=== PATIENT | male | born 1970 | race Caucasian/White ===

== ENCOUNTER 2020-12-27 19:34 | Emergency (ER) | payer OTHER, SELFPAY ==
[2020-12-27 19:44] VITALS: BP 155/74; PULSE 85; RESP 24; TEMP 38.1; O2SAT 92
--- NOTE | 2020-12-27 20:15 | DI.RAD.S_ITS ---
PROCEDURE: XR CHEST 1V INDICATIONS: covid infection TECHNIQUE: One view of the chest was acquired. COMPARISON: None. FINDINGS: Surgical changes and devices: None. Lungs and pleura: Ill-defined airspace opacities are seen scattered in bilateral hilar region and bilateral mid to lower lung perales. No pleural effusions or pneumothorax. Mediastinum: Mediastinal contours appear normal. Heart size is normal. Bones and chest wall: No suspicious bony lesions. Overlying soft tissues appear unremarkable. IMPRESSION: Finding is consistent with developing bilateral multilobar infiltrates from COVID-19 infection. No pleural effusion or pneumothorax. Dictated by: Isaías Augustine M.D. on 12/27/2020 at 20:49 Approved by: Isaías Augustine M.D. on 12/27/2020 at 20:50
[2020-12-27] MEDS: ACETAMINOPHEN 325 MG TABLET 975 MG PO (20:21)
--- NOTE | 2020-12-27 21:23 | ED_ITS ---
HPI - SOB/Dyspnea General Chief Complaint: Shortness of Breath/Dyspnea Stated Complaint: states is covid +, not feeling well Time Seen by Provider: 12/27/20 20:15 Source: patient Mode of arrival: Ambulatory History of Present Illness HPI Narrative: This is a 50-year-old male who comes to the emergency department with approximately 7-10 days of COVID symptoms. Patient states he has been feeling unwell but particularly in the last several days. He feels short of breath, he has chest pain, he has had fevers. He has had nausea and vomiting. He has had some diarrhea. He has not had any syncope. He has not any new swelling in his extremities. He denies any medical issues. He has had a prior hernia repair in the past. He denies allergies to medications. He denies any remote or recent tobacco abuse, no regular alcohol or illicit. He is accompanied by his today. Related Data Previous Rx's Medication Instructions Recorded codeine 10 mg-guaifenesin 200 mg/5 5 ml PO Q6H PRN #100 ml 12/27/20 mL oral liquid ondansetron HCl 4 mg tablet 4 mg PO Q6H PRN #10 tab 12/27/20 (Zofran) Review of Systems Review of Systems ROS Unobtainable: All systems reviewed & are unremarkable except as noted in HPI and below Exam Narrative Exam Narrative: GENERAL: Alert and oriented x three, obese male in mild distress but does appear to feel unwell. HEENT: Head normocephalic, atraumatic, EOMI, pupils reactive, face symmetric, moist mucous membranes NECK: Supple, full range of motion CARDIOVASCULAR: Regular rate and rhythm without murmurs, rubs or gallops. RESPIRATORY: Breath sounds equal bilaterally, no wheezes rales or rhonchi. Patient is able to speak in full sentences. No tachypnea. No accessory muscle use. ABDOMEN: Soft, nontender. Normoactive bowel sounds all 4 quadrants. No gua rding or rebound, rigidity, no mass : No CVA tenderness EXTREMITIES: Normal range of motion, no clubbing or edema. Neurovascularly intact NEUROLOGICAL: Cranial nerves II through XII grossly intact. Moving all extremities SKIN: Warm, dry, no petechiae, no rashes or lesions. Initial Vital Signs Initial Vital Signs: Vital Signs Temperature 100.5 F H 12/27/20 19:44 Pulse Rate 85 09/28/21 19:44 Respiratory Rate 24 12/27/20 19:44 Blood Pressure 155/74 H 12/27/20 19:44 Pulse Oximetry 92 12/27/20 19:44 Course Orders Ordered: ED Orders 12/27/20 20:15 XR chest 1V Stat Discontinued Medications Acetaminophen (Acetaminophen 325 Mg Tablet) 975 mg PO NOW ONE Stop: 12/27/20 20:16 Last Admin: 12/27/20 20:21 Dose: 975 mg Documented by: BRAIN Ondansetron HCl (Ondansetron 4 Mg Odt Prepack) 1 bottle MISC SEEINSTR ONE Stop: 12/27/20 21:50 Last Admin: 12/27/20 21:54 Dose: 1 bottle Documented by: BRAIN Vital Signs Vital signs: Vital Signs - 8 hr 12/27/20 19:44 12/27/20 22:03 Temperature 100.5 F H Pulse Rate 85 84 Respiratory Rate 24 Blood Pressure 155/74 H Pulse Oximetry 92 94 MDM - SOB/Dyspnea Imaging Data Chest x-ray: Radiologist's Impression: [place] [address] XRay Report Signed Patient: Ayo Antonio MR#: [id number] : 1970 Acct:[id number] Age/Sex: 50 / M Date of Service: 12/27/20 Loc: ED Accession Number: [id number] ?? Procedure: XR chest 1V Ordering Provider: Soniya Nelson D.O. PROCEDURE:? XR CHEST 1V ? INDICATIONS:? covid infection ? TECHNIQUE:? One view of the chest was acquired.? ? COMPARISON:? None. ? FINDINGS:? ? Surgical changes and devices:? None.? ? Lungs and pleura:? Ill-defined airspace opacities are seen scattered in bilateral hilar region and bilateral mid to lower lung perales.? No pleural effusions or pneumothorax.? ? Mediastinum:? Mediastinal contours appear normal.? Heart size is normal.? ? Bones and chest wall:? No suspicious bony lesions.? Overlying soft tissues appear unremarkable.? ? IMPRESSION:? Finding is consistent with developing bilateral multilobar infiltrates from COVID-19 infection.? No pleural effusion or pneumothorax. ? ? Dictated by: Isaías Augustine M.D. on 12/27/2020 at 20:49 ? ? Approved by: Isaías Augustine M.D. on 12/27/2020 at 20:50? [facility] Narrative Medical decision making narrative: This is a 50-year-old gentleman who was found to be COVID positive a little over a week ago approximately 10 days symptoms. He does have obesity but no other known risk factors. He has had chest pain shortness of breath and is borderline with 92% on room air. He is febrile to 100.5 F but no other major vital sign changes. Chest x-ray is positive for multi lobar pneumonia. Patient was ambulated in the department for over 3 minutes and his O2 sat was never lower than 94% during that episode he has not dropped below 92%. I do think he may benefit from monoclonal antibodies although he is on the outer edge of typical treatment range but order was written and faxed to [facility]. Patient does have a pulse oximeter at home. He had obtained a prescription for azithromycin and prednisone and was asked to stop these as steroids in not hypoxic patient's have been found to be not helpful. Patient expressed understanding. Strict return precautions were given. Has had some nausea and vomiting and was given a prescription for Zofran as well as anti cough medicine. Discharge Plan Departure Patient Disposition: Home Clinical Impression: Pneumonia due to COVID-19 virus Instructions: DI for COVID-19 (Suspected or Confirmed ) Activity Restrictions/Additional Instructions: *You have been diagnosed with coronavirus pneumonia with changes seen on your chest xray. Use your pulse oximeter for use at home to monitor. Please return to the ER if your pulse oximeter shows an O2 saturation less than 92%. An order was faxed to [facility] in [place] to set up a monoclonal antibody infusion. This is a 1 time infusion that has been helpful for some patients. It is emergency authorized by the FDA. This is not a guarantee that you will be set up as is a national shortage, they should be contacting you to set up infusion in the next 24-48 hours. Continue with up to a 1000 mg every 8 hours and or ibuprofen up to 800 mg every 8 hours. You may take Zofran 1 tablet every 6 hours as needed for nausea. You may also take cough syrup 5 mL every 6 hours as needed. Prescription sent to [facility] in [place]. *What to do: * per recommendations from the CDC and the [facility] Department of Health * stay home except to get medical care. Restrict activities outside your home, except for getting medical care. Do not go to work, school, or public areas. Avoid using public transportation, ride sharing, or taxis. * separate yourself from other people in your home. * call ahead before visiting your doctor * Wear a face mask * Cover your coughs and sneezes * Clean your hands often * Avoid sharing household items * Clean all high-touch services every day * Monitor your symptoms and seek prompt medical attention if your illness is worsening, particularly with difficulty in breathing. Discussed continuing home isolation * for individuals with symptoms who are confirmed or suspected cases of COVID-19 and are directed to care for themselves at home, discontinue home isolation under the following conditions: 1. At least 72 hours have passed since recovery, defined as resolution of fever without the use of fever reducing medications, and improvement in respiratory symptoms (cough, shortness of breath) AND, 2. At least 7 days have passed since symptoms 1st appeared Individuals with laboratory confirmed COVID-19 who have not had any symptoms may discontinue home isolation when at least 7 days have passed since the date of their 1st COVID-19 diagnostic test and have had no subsequent illness Prescriptions: New ondansetron HCl [Zofran] 4 mg tablet 4 mg PO Q6H PRN (Reason: nausea and vomiting) Qty: 10 RF: 0 codeine-guaifenesin 10-200 mg/5 mL liquid 5 ml PO Q6H PRN (Reason: cough) Qty: 100 RF: 0
[2020-12-27] MEDS: ONDANSETRON 4 MG ODT PREPACK 1 BOTTLE MISC (21:54)
[2020-12-27 22:03] VITALS: PULSE 84; O2SAT 94
== END 2020-12-27 22:05 | disposition home or self-care (01) ==
PROVIDERS: Emergency Provider Emergency Medicine
DX: U07.1 COVID-19 (principal); J12.82 Pneumonia due to coronavirus disease 2019; R07.9 Chest pain, unspecified
CPT/HCPCS: 71045; 99283

== ENCOUNTER 2020-12-30 08:18 | Inpatient (IN) | payer OTHER, SELFPAY ==
[2020-12-30] VITALS (17 sets, daily range): BP systolic 121–170; BP diastolic 72–97; PULSE 70–87; RESP 17–29; TEMP 36.2–36.7; O2SAT 80–99; BMI 45.4
--- NOTE | 2020-12-30 08:37 | ED.SOB ---
HPI - SOB/Dyspnea General Chief Complaint: Fever Stated Complaint: covid+, O2 level 84 Time Seen by Provider: 12/30/20 08:28 History of Present Illness HPI Narrative: A 50-year-old male with known COVID presenting today with low oxygen levels. Past medical history includes obesity but no other medications. He started having symptoms weeks. He was seen and evaluated here on 12/27/2020, he did not require oxygen at that time he was sent home with precautions. He has been checking his oxygen level he said yesterday he was still above 90% however this morning he was 83%. He continues to have night sweats cough and congestion. Generally feels weak and tired. He can still taste. He has not been eating or drinking very much complains of dry mouth. It was attempted that he get outpatient monoclonal antibody infusion however since symptoms have been going on for longer than 10 days did not qualify. Related Data Home Medications Medication Instructions Recorded Confirmed azithromycin 250 mg tablet 250 mg PO DAILY 12/30/20 12/30/20 Previous Rx's Medication Instructions Recorded codeine 10 mg-guaifenesin 200 mg/5 5 ml PO Q6H PRN #100 ml 12/27/20 mL oral liquid ondansetron HCl 4 mg tablet 4 mg PO Q6H PRN #10 tab 12/27/20 (Zofran) Allergies Allergy/AdvReac Type Severity Reaction Status Date / Time No Known Drug Allergies Allergy Verified 12/30/20 08:49 Review of Systems Review of Systems ROS Unobtainable: All systems reviewed & are unremarkable except as noted in HPI and below Constitutional Constitutional: Reports body ache(s), Reports chills, Reports fatigue and Reports fever(s) ENT Ears, Nose, Mouth, and Throat: Denies vertigo and Denies dizziness Cardiovascular Cardiovascular: Denies chest pain, Denies lightheadedness and Reports dyspnea on exertion Respiratory Respiratory: Reports as per HPI, Reports chest congestion and Reports dyspnea on exertion Gastrointestinal Gastrointestinal: Denies abdominal pain and Denies nausea Integumentary/Breasts Skin/Breast: Denies rash and Denies skin pain Neurologic Neurologic: Denies confusion, Denies vertigo and Denies dizziness Psychiatric Psychiatric: Denies confusion Endocrine Endocrine: Reports fatigue Patient History Family History (Updated 12/30/20 @ 13:48 by Nicolette Martin MD) Mother Brain malignancy Other Cancer Social History household members: spouse and children Smoking Status: Never smoker Exam Initial Vital Signs Initial Vital Signs: Vital Signs Temperature 98.1 F 12/30/20 08:25 Pulse Rate 74 12/30/20 08:25 Respiratory Rate 24 12/30/20 08:25 Blood Pressure 156/78 H 12/30/20 08:25 Pulse Oximetry 80 L 12/30/20 08:25 GENERAL: Alert 50-year-old male appears to not feel well HEENT: Head atraumatic,EOMI, pupils reactive, face symmetric, moist mucous membranes CARDIOVASCULAR: Regular rate and rhythm without murmurs, rubs or gallops. RESPIRATORY: Coarse breath sounds at bases ABDOMEN: Soft, nontender. Normoactive bowel sounds all 4 quadrants. No guarding or rebound. EXTREMITIES: Normal range of motion, no clubbing or edema. Neurovascularly intact NEUROLOGICAL: Alert and oriented x4.Normal gait and speech. SKIN: Warm, dry, no laceration, no petechiae, no rashes or lesions. Course Orders Ordered: Acetaminophen (Acetaminophen 325 Mg Tablet) 650 mg PO Q6HR PRN PRN Reason: Fever/Mild Pain (1-3) Bisacodyl (Bisacodyl 10 Mg Supp) 10 mg IA DAILY PRN PRN Reason: Constipation Dexamethasone (Dexamethasone 10 Mg/Ml Vial) 6 mg IV DAILY [facility] Docusate Sodium (Docusate 100 Mg Capsule) 100 mg PO BID [facility] Enoxaparin Sodium (Enoxaparin 40 Mg/0.4 Ml Syringe) 40 mg SUBCUT BID [facility] Guaifenesin (Guaifenesin Er 600 Mg Tab) 600 mg PO Q12HR PRN PRN Reason: Cough Guaifenesin/Codeine Phosphate (Codeine/Guaifenesin Liquid 5ml Udc) 10 ml PO Q6H PRN PRN Reason: Cough Remdesivir 100 mg/ Sodium (Chloride) 250 mls @ 250 mls/hr IV DAILY [facility] Stop: 01/03/21 09:59 Ibuprofen (Ibuprofen 600 Mg Tablet) 600 mg PO Q6HR PRN PRN Reason: Fever/Mild Pain (1-3) Insulin Glargine (Insulin Glargine 100 Unit/Ml 3ml Pen) 20 unit SUBCUT BEDTIME [facility] Insulin Human Lispro (Insulin Lispro 100 Unit/Ml 3ml Vial) 0 unit SUBCUT [facility]; Protocol Last Admin: 12/30/20 17:23 Dose: 12 unit Documented by: JEFFREY Aguiarigned by: ANATOLY Magnesium Hydroxide (Magnesium Hydroxide 30 Ml Udc) 30 ml PO DAILY PRN PRN Reason: Constipation Naloxone HCl (Naloxone 0.4 Mg/Ml Vial) 0.2 mg IV Q2MIN PRN PRN Reason: Opiate Reversal Ondansetron HCl (Ondansetron 4 Mg/2 Ml Inj) 4 mg IV Q8HR PRN PRN Reason: Nausea And Vomiting Sennosides (Sennosides 8.6 Mg Tablet) 17.2 mg PO BEDTIME EMMY Discontinued Medications Dexamethasone (Dexamethasone 10 Mg/Ml Vial) 6 mg IV NOW ONE Stop: 12/30/20 08:42 Last Admin: 12/30/20 09:07 Dose: 6 mg Documented by: KIRT Remdesivir 200 mg/ Sodium (Chloride) 250 mls @ 250 mls/hr IV NOW ONE Stop: 12/30/20 08:42 Last Infusion: 12/30/20 10:19 Dose: 0 mls/hr Documented by: Admin: 12/30/20 09:07 Dose: 250 mls/hr Documented by: KIRT Insulin Glargine (Insulin Glargine 100 Unit/Ml 3ml Pen) 20 unit SUBCUT NOW ONE Stop: 12/30/20 18:06 Vital Signs Vital signs: Vital Signs - 8 hr 12/30/20 08:25 12/30/20 08:30 12/30/20 08:35 Temperature 98.1 F Pulse Rate 74 74 Respiratory Rate 24 24 Blood Pressure 156/78 H Pulse Oximetry 80 L 95 97 12/30/20 08:45 12/30/20 08:56 12/30/20 09:00 Temperature Pulse Rate 73 72 74 Respiratory Rate 20 21 23 Blood Pressure 121/78 143/84 H Pulse Oximetry 97 97 96 12/30/20 09:15 Temperature Pulse Rate 71 Respiratory Rate 27 H Blood Pressure 170/97 H Pulse Oximetry 97 MDM - SOB/Dyspnea Lab Data Result diagrams: 12/30/20 08:35 12/30/20 08:35 Labs: Lab Results 12/30/20 12/30/20 12/30/20 Range/Units 08:35 08:35 08:35 WBC 5.2 (4.5-11.0) X10^3/uL RBC 6.05 H (4.5-5.9) X10^6/uL Hgb 11.4 L (13.5-17.5) g/dL Hct 36.4 L (41-53) % MCV 60.1 L (80-100) fL MCH 18.9 L (26-34) PG MCHC 31.4 (30-36) % RDW 16.2 H (11.6-14.8) % Plt Count 199 (150-400) X10^3/uL Neut % (Auto) Not Reportable Lymph % (Auto) Not Reportable Avery % (Auto) Not Reportable Eos % (Auto) Not Reportable Baso % (Auto) Not Reportable Lymph # (Auto) Not Reportable Avery # (Auto) Not Reportable Baso # (Auto) Not Reportable Total Counted 100 Seg Neutrophils % 57.0 (38-70) % Band Neutrophils % 3.0 (3-7) % Lymphocytes % (Manual) 25.0 (25-45) % Atypical Lymphs % 2.0 H ( - 0) % Monocytes % (Manual) 9.0 (2-11) % Eosinophils % (Manual) 3.0 (2-4) % Basophils % (Manual) 1.0 (0-1) % Neutrophils # (Manual) 3120 (4932-7539) /uL RBC Morphology See below Hypochromasia 2+ H Poikilocytosis 1+ H Anisocytosis 1+ H Microcytosis 2+ H D-Dimer 411 H (<230) ng/mL Sodium (137-145) mmol/L Potassium (3.4-5.1) mmol/L Chloride (98-107) mmol/L Carbon Dioxide (22-32) mmol/L BUN (9-20) mg/dL Creatinine (0.66-1.25) mg/dL Estimated GFR (>60) mL/min BUN/Creatinine Ratio (6-22) Glucose (70-100) mg/dL Hemoglobin A1c (4.0-6.0) % Lactate (0.7-2.1) mmol/L Calcium (8.4-10.2) mg/dL Total Bilirubin (0.2-1.3) mg/dL AST (17-59) IU/L ALT (<50) IU/L Alkaline Phosphatase (38-126) U/L Total Creatine Kinase (55-170) U/L CK-MB (CK-2) CK-MB (CK-2) Rel Index Troponin I (0.01-0.034) ng/mL C-Reactive Protein (<1.0) mg/dL Total Protein (6.3-8.2) g/dL Albumin (3.5-5.0) g/dL Globulin (1.7-4.1) g/dL Albumin/Globulin Ratio (1.0-2.8) Procalcitonin 0.08 (<0.5) ng/mL 12/30/20 12/30/20 12/30/20 Range/Units 08:35 08:35 08:35 WBC (4.5-11.0) X10^3/uL RBC (4.5-5.9) X10^6/uL Hgb (13.5-17.5) g/dL Hct (41-53) % MCV (80-100) fL MCH (26-34) PG MCHC (30-36) % RDW (11.6-14.8) % Plt Count (150-400) X10^3/uL Neut % (Auto) Lymph % (Auto) Avery % (Auto) Eos % (Auto) Baso % (Auto) Lymph # (Auto) Avery # (Auto) Baso # (Auto) Total Counted Seg Neutrophils % (38-70) % Band Neutrophils % (3-7) % Lymphocytes % (Manual) (25-45) % Atypical Lymphs % ( - 0) % Monocytes % (Manual) (2-11) % Eosinophils % (Manual) (2-4) % Basophils % (Manual) (0-1) % Neutrophils # (Manual) (0932-9996) /uL RBC Morphology Hypochromasia Poikilocytosis Anisocytosis Microcytosis D-Dimer (<230) ng/mL Sodium 138 (137-145) mmol/L Potassium 4.9 (3.4-5.1) mmol/L Chloride 99 (98-107) mmol/L Carbon Dioxide 32 (22-32) mmol/L BUN 11 (9-20) mg/dL Creatinine 0.49 L (0.66-1.25) mg/dL Estimated GFR > 60.0 (>60) mL/min BUN/Creatinine Ratio 22.4 H (6-22) Glucose 335 H (70-100) mg/dL Hemoglobin A1c 12.4 H (4.0-6.0) % Lactate 2.2 H (0.7-2.1) mmol/L Calcium 8.7 (8.4-10.2) mg/dL Total Bilirubin 0.9 (0.2-1.3) mg/dL AST 53 (17-59) IU/L ALT 41 (<50) IU/L Alkaline Phosphatase 101 (38-126) U/L Total Creatine Kinase 28 L (55-170) U/L CK-MB (CK-2) TNP CK-MB (CK-2) Rel Index TNP Troponin I < 0.012 (0.01-0.034) ng/mL C-Reactive Protein 5.5 H (<1.0) mg/dL Total Protein 8.1 (6.3-8.2) g/dL Albumin 4.1 (3.5-5.0) g/dL Globulin 4.0 (1.7-4.1) g/dL Albumin/Globulin Ratio 1.0 (1.0-2.8) Procalcitonin (<0.5) ng/mL Imaging Data Chest x-ray: Radiologist's Impression: PROCEDURE:? XR CHEST 1V ? INDICATIONS:? covid ? TECHNIQUE:? One view of the chest was acquired.? ? COMPARISON:? Merged With [facility], , XR CHEST 1V, 12/27/2020, 20:34. ? FINDINGS:? ? Surgical changes and devices:? None.? ? Lungs and pleura:? There are increased bilateral patchy indistinct airspace opacities with a peripheral and basilar predominance.? No pleural effusions or pneumothorax.? ? Mediastinum:? Mediastinal contours appear normal.? Heart size is normal.? ? Bones and chest wall:? No suspicious bony lesions.? Overlying soft tissues appear unremarkable.? ? IMPRESSION:? ? 1. Increased bilateral patchy indistinct airspace opacities consistent with COVID-19 pneumonia given the pattern and clinical history.? ? ? Dictated by: Yash Angeles M.D. on 12/30/2020 at 9:57 ECG Data Interpretation: Normal sinus rhythm rate 75 IA interval 190 QRS [address] changes is T-wave inversion noted in lead 3 MDM Narrative Medical decision making narrative: The patient has known COVID a presenting hypoxic with O2 sat in the 80s but quickly improved with a few L of oxygen. He is given dexamethasone and read does severe. Dr. martin updated on patient's symptoms the test results and happily except Discharge Plan Departure Patient Disposition: Admitted As Inpatient Clinical Impression: Pneumonia due to COVID-19 virus Admit Date/Time: 12/30/20 10:17 Admit Provider: Nicolette Martin
--- NOTE | 2020-12-30 08:38 | DI.RAD.S_ITS ---
PROCEDURE: XR CHEST 1V INDICATIONS: covid TECHNIQUE: One view of the chest was acquired. COMPARISON: [facility], CR, XR CHEST 1V, 12/27/2020, 20:34. FINDINGS: Surgical changes and devices: None. Lungs and pleura: There are increased bilateral patchy indistinct airspace opacities with a peripheral and basilar predominance. No pleural effusions or pneumothorax. Mediastinum: Mediastinal contours appear normal. Heart size is normal. Bones and chest wall: No suspicious bony lesions. Overlying soft tissues appear unremarkable. IMPRESSION: 1. Increased bilateral patchy indistinct airspace opacities consistent with COVID-19 pneumonia given the pattern and clinical history. Dictated by: Yash Angeles M.D. on 12/30/2020 at 9:57 Approved by: Yash Angeles M.D. on 12/30/2020 at 9:59
[2020-12-30 08:48] LABS: Hematocrit 36.4 % (41-53); Hemoglobin 11.4 g/dL (13.5-17.5); Mean Corpuscular HGB Conc 31.4 % (30-36); Mean Corpuscular Hemoglobin 18.9 PG (26-34); White Blood Cell Count 5.2 X10^3/uL (4.5-11.0)
[2020-12-30 08:53] LABS: Mean Corpuscular Volume 60.1 fL (80-100); Platelet Count 199 X10^3/uL (150-400); Red Blood Cell Count 6.05 X10^6/uL (4.5-5.9); Red Cell Distribution Width 16.2 % (11.6-14.8)
[2020-12-30 08:54] LABS: Add Manual Diff / Slide Review YES
[2020-12-30 08:57] LABS: D Dimer 411 ng/mL (<230)
[2020-12-30 08:58] LABS: Lactate (Lactic Acid) 2.2 mmol/L (0.7-2.1)
[2020-12-30 09:00] LABS: Alanine Aminotransferase 41 IU/L (<50); Albumin 4.1 g/dL (3.5-5.0); Alkaline Phosphatase 101 U/L (38-126); Aspartate Aminotransferase 53 IU/L (17-59); BUN Creatinine Ratio 22.4 (6-22); Bilirubin Total 0.9 mg/dL (0.2-1.3); Blood Urea Nitrogen 11 mg/dL (9-20); C-Reactive Protein Quant 5.5 mg/dL (<1.0); Calcium 8.7 mg/dL (8.4-10.2); Carbon Dioxide 32 mmol/L (22-32); Chloride 99 mmol/L (98-107); Creatine Kinase 28 U/L (55-170); Estimated Glomerular Filt Rate > 60.0 mL/min (>60); Glucose 335 mg/dL (70-100); Potassium 4.9 mmol/L (3.4-5.1); Sodium 138 mmol/L (137-145); Total Protein 8.1 g/dL (6.3-8.2)
[2020-12-30 09:02] LABS: HEMOLYSIS 66 (0-50)
[2020-12-30] MEDS: REMDESIVIR 200 MG in SODIUM CHLORIDE 0.9% 210 ML 250 ML IV (09:07)
[2020-12-30] MEDS: DEXAMETHASONE 10 MG/ML VIAL 6 MG IV (09:07)
[2020-12-30 09:09] LABS: Troponin I < 0.012 ng/mL (0.01-0.034)
[2020-12-30 09:14] LABS: Procalcitonin 0.08 ng/mL (<0.5)
[2020-12-30 09:35] LABS: Neutrophils Absolute Manual 3120 /uL (3000-5900); Total Cells Counted 100
[2020-12-30 09:37] LABS: Hypochromasia 2+; Microcytosis 2+
[2020-12-30 09:38] LABS: Anisocytosis 1+; Poikilocytosis 1+
[2020-12-30 10:43] LABS: Reflexed Lactate in 2 Hours Y
[2020-12-30 11:19] LABS: Lactate 2HR (Lactic Acid Rflx) 1.4 mmol/L (0.7-2.1)
--- NOTE | 2020-12-30 13:29 | DIET.CONS ---
Dietary Consultation Note Admission Date: 12/30/2020 10:17 Assessment: 50 y/o M admitted c covid pneumonia. Kitchen will send ONS Ensure max q day to support high PRO needs in this covid+ obese pt presenting with hyperglycemia. No HgA1c to review at this time. Unclear of PMH of DM. No DM meds listed for home meds. Ht: 190.5 cm Wt: 165.062 kg BMI: 45.4 Last BM: 12/28/20 (12/30/20 12:10) MNA: 10 Lico Score: 20 Labs: RBC 6.05 X10^6/uL (4.5-5.9) H 12/30/20 08:35 Hgb 11.4 g/dL (13.5-17.5) L 12/30/20 08:35 Hct 36.4 % (41-53) L 12/30/20 08:35 Creatinine 0.49 mg/dL (0.66-1.25) L 12/30/20 08:35 Lactate 1.4 mmol/L (0.7-2.1) 12/30/20 11:02 Electronically Signed by: Marizol Islas 12/30/20 13:29 Clinical Dietitian [address] [id number]
--- NOTE | 2020-12-30 13:37 | PM.HP.1 ---
History of Present Illness History of Present Illness Date Patient Seen: 12/30/20 Time Patient Seen: 13:37 Chief complaint: covid+, O2 level 84 Narrative: The patient is a 50-year-old male with no prior past medical history who developed symptoms of COVID pneumonia 2 weeks prior to admission. Patient reports he is unvaccinated. He developed cough, shortness of breath, fever, sweats, and diarrhea. As his symptoms were progressing he presented to the emergency department on December 27. He was evaluated in the emergency department and found to be COVID positive. He was hypoxic at the time although O2 sats were 90%. He was evaluated treated and discharged home. The patient was referred for monoclonal antibodies. However as he was not more hypoxic it was felt he was not eligible. Patient had a pulse oximeter at home. He reported his O2 sat dropped to 83%. He was markedly short of breath and presented to the hospital for evaluation. In the emergency room chest x-ray did confirm bilateral opacities consistent with COVID pneumonia. He is admitted to the hospital at this time for acute respiratory failure secondary to COVID pneumonia. The patient has had no nausea or vomiting. He has had significant coughing to the point of dry heaves. He has not had no dysuria hematuria or pyuria. He has lost 12 lb over the past 2 weeks. He reports some mild headache, generalized myalgias,. Patient History Family & Social History Family History (Updated 12/30/20 @ 13:48 by Nicolette Martin MD) Mother Brain malignancy Other Cancer Social History: household members spouse,children Prior Living Arrangements House Safety & Behavioral: Feels Safe in Current Yes Environment Been Physically Hurt or No Threatened By a Person Suicidal Ideation Description None Suicide Plan Description No Plan Tobacco & Substance use: Smoking Status Never smoker alcohol intake frequency holiday/special occasion Substance Use Type does not use Meds Home Medications and Allergies Home Medications Medication Instructions Recorded Confirmed Type codeine 10 mg-guaifenesin 200 mg/5 5 ml PO Q6H PRN #100 ml 12/27/20 12/30/20 Rx mL oral liquid ondansetron HCl 4 mg tablet 4 mg PO Q6H PRN #10 tab 12/27/20 12/30/20 Rx (Zofran) azithromycin 250 mg tablet 250 mg PO DAILY 12/30/20 12/30/20 History Allergies Allergy/AdvReac Type Severity Reaction Status Date / Time No Known Drug Allergies Allergy Verified 12/30/20 08:49 Review of Systems Review of Systems Narrative: 10 point review of system negative Exam Vital Signs (past 8 hours): - 12/30/20 08:25 12/30/20 08:30 12/30/20 08:35 Temperature 98.1 F Pulse Rate 74 74 Respiratory Rate 24 24 Blood Pressure 156/78 H Pulse Oximetry 80 L 95 97 12/30/20 08:45 12/30/20 08:56 12/30/20 09:00 Temperature Pulse Rate 73 72 74 Respiratory Rate 20 21 23 Blood Pressure 121/78 143/84 H Pulse Oximetry 97 97 96 12/30/20 09:15 12/30/20 09:30 12/30/20 09:45 Temperature Pulse Rate 71 73 72 Respiratory Rate 27 H 29 H 21 Blood Pressure 170/97 H 136/77 Pulse Oximetry 97 98 97 12/30/20 10:00 12/30/20 10:15 12/30/20 10:30 Temperature Pulse Rate 71 75 76 Respiratory Rate 20 20 28 H Blood Pressure 137/78 143/79 H 127/89 Pulse Oximetry 98 98 98 12/30/20 10:45 12/30/20 11:00 12/30/20 11:30 Temperature 97.7 F Pulse Rate 76 78 85 Respiratory Rate 24 26 H 20 Blood Pressure 144/94 H 144/76 H Pulse Oximetry 97 99 94 Oxygen Delivery Method Nasal Cannula Oxygen Flow Rate 2 Narrative Exam Narrative: Pleasant ill-appearing male lying in bed [facility] Other: Normocephalic atraumatic, extraocular muscles are intact, oropharynx is clear, neck is supple without adenopathy Resp Other: Lungs reveal decreased breath sounds with coarse rhonchi at the bases bilaterally Cardio Other: Cardiac exam: Regular rate rhythm normal S1-S2, with a 2/6 systolic ejection murmur GI Other: Abdomen soft nontender nondistended Neuro Other: Neuro exam is nonfocal Extrem Other: Extremity no edema Objective Labs Result Diagrams: 12/30/20 08:35 12/30/20 08:35 Labs: Laboratory Results - last 24 hr 12/30/20 12/30/20 12/30/20 08:35 08:35 08:35 WBC 5.2 RBC 6.05 H Hgb 11.4 L Hct 36.4 L MCV 60.1 L MCH 18.9 L MCHC 31.4 RDW 16.2 H Plt Count 199 Neut % (Auto) Not Reportable Lymph % (Auto) Not Reportable [place] % (Auto) Not Reportable Eos % (Auto) Not Reportable Baso % (Auto) Not Reportable Lymph # (Auto) Not Reportable [place] # (Auto) Not Reportable Baso # (Auto) Not Reportable Total Counted 100 Seg Neutrophils % 57.0 Band Neutrophils % 3.0 Lymphocytes % (Manual) 25.0 Atypical Lymphs % 2.0 H Monocytes % (Manual) 9.0 Eosinophils % (Manual) 3.0 Basophils % (Manual) 1.0 Neutrophils # (Manual) 3120 RBC Morphology See below Hypochromasia 2+ H Poikilocytosis 1+ H Anisocytosis 1+ H Microcytosis 2+ H D-Dimer 411 H Sodium Potassium Chloride Carbon Dioxide BUN Creatinine Estimated GFR BUN/Creatinine Ratio Glucose Lactate Calcium Total Bilirubin AST ALT Alkaline Phosphatase Total Creatine Kinase CK-MB (CK-2) CK-MB (CK-2) Rel Index Troponin I C-Reactive Protein Total Protein Albumin Globulin Albumin/Globulin Ratio Procalcitonin 0.08 12/30/20 12/30/20 12/30/20 08:35 08:35 11:02 WBC RBC Hgb Hct MCV MCH MCHC RDW Plt Count Neut % (Auto) Lymph % (Auto) [place] % (Auto) Eos % (Auto) Baso % (Auto) Lymph # (Auto) [place] # (Auto) Baso # (Auto) Total Counted Seg Neutrophils % Band Neutrophils % Lymphocytes % (Manual) Atypical Lymphs % Monocytes % (Manual) Eosinophils % (Manual) Basophils % (Manual) Neutrophils # (Manual) RBC Morphology Hypochromasia Poikilocytosis Anisocytosis Microcytosis D-Dimer Sodium 138 Potassium 4.9 Chloride 99 Carbon Dioxide 32 BUN 11 Creatinine 0.49 L Estimated GFR > 60.0 BUN/Creatinine Ratio 22.4 H Glucose 335 H Lactate 2.2 H 1.4 Calcium 8.7 Total Bilirubin 0.9 AST 53 ALT 41 Alkaline Phosphatase 101 Total Creatine Kinase 28 L CK-MB (CK-2) TNP CK-MB (CK-2) Rel Index TNP Troponin I < 0.012 C-Reactive Protein 5.5 H Total Protein 8.1 Albumin 4.1 Globulin 4.0 Albumin/Globulin Ratio 1.0 Procalcitonin Assessment & Plan Assessment & Plan narrative: Impression 1. 50-year-old male admitted to the hospital with acute respiratory failure secondary to COVID pneumonia -chest x-ray confirms bilateral past -patient remains markedly hypoxic -he currently is on 3 L of oxygen -will continue dexamethasone, and remdesivir -will start baracitinib -patient is placed on DVT prophylaxis -patient is unvaccinated but very interested in getting vaccinated once he is eligible after his hospital stay 2. Morbid obesity -the patient has lost 12 lb over the past week due to COVID -will ask for dietary consultation Patient is a full code and will note that his record accordingly Patient is admitted as an inpatient anticipate length of stay greater than 48 hours He reports his is his surrogate decision maker COVID-19 COVID-19 status: Positive Time Spent With Patient Critical Care time: I spent a total of [] minutes of critical care time on this patient's care today; this time is exclusive of procedural time.
--- NOTE | 2020-12-30 14:45 | PC.NURSE ---
Pt arrived to room 216 at 1130. VSS, afebrile 86 % on 2L with ambulation. Increased 02 NC to 3 L and pt reports feeling better at rest 96% 02 sats. Pt denies coughing anything up but states he's been feeling continuous cough. LS dimminished in bases. Admission assessment completed. He denies pain/nausea/vomitting. Oriented to room, room service, bed and call light. Encouraged to call for assistance when getting out of bed.
[2020-12-30] MEDS: INSULIN LISPRO 100 UNIT/ML 3ML VIAL SUBCUT ×2 (17:23→20:40)
[2020-12-30 17:39] LABS: Hemoglobin A1C% w Est Avg Glu 12.4 % (4.0-6.0)
[2020-12-30] MEDS: SENNOSIDES 8.6 MG TABLET 17.2 MG PO (20:39)
[2020-12-30] MEDS: ENOXAPARIN 40 MG/0.4 ML SYRINGE SUBCUT (20:39)
[2020-12-30] MEDS: DOCUSATE 100 MG CAPSULE PO (20:39)
[2020-12-30] MEDS: INSULIN GLARGINE 100 UNIT/ML 3ML PEN 20 UNIT SUBCUT (20:41)
[2020-12-31] VITALS (8 sets, daily range): BP systolic 112–142; BP diastolic 56–81; PULSE 66–74; RESP 16–18; TEMP 35.9–36.6; O2SAT 93–98
[2020-12-31 06:57] LABS: Add Manual Diff / Slide Review NO; Basophils Absolute Auto 300 /uL (0-100); Basophils Percent Auto 4.1 % (0-2); Eosinophils Absolute Auto 0 /uL (0-450); Eosinophils Percent Auto 0.5 % (2-4); Hematocrit 35.3 % (41-53); Hemoglobin 10.8 g/dL (13.5-17.5); Lymphocytes Absolute Auto 1500 /uL (1100-4500); Lymphocytes Percent Auto 24.6 % (25-40); Mean Corpuscular HGB Conc 30.7 % (30-36); Mean Corpuscular Hemoglobin 18.4 PG (26-34); Mean Corpuscular Volume 59.9 fL (80-100); Monocytes Absolute Auto 500 /uL (0-900); Monocytes Percent Auto 8.6 % (3-14); Neutrophils Absolute Auto 3800 /uL (1500-7000); Neutrophils Percent Auto 62.2 % (50-75); Platelet Count 217 X10^3/uL (150-400); Red Blood Cell Count 5.89 X10^6/uL (4.5-5.9); Red Cell Distribution Width 15.6 % (11.6-14.8); White Blood Cell Count 6.2 X10^3/uL (4.5-11.0)
[2020-12-31 07:10] LABS: BUN Creatinine Ratio 28.3 (6-22); Blood Urea Nitrogen 13 mg/dL (9-20); Carbon Dioxide 32 mmol/L (22-32); Chloride 99 mmol/L (98-107); Estimated Glomerular Filt Rate > 60.0 mL/min (>60); Glucose 292 mg/dL (70-100); HEMOLYSIS < 15 (0-50); Potassium 3.8 mmol/L (3.4-5.1); Sodium 137 mmol/L (137-145)
[2020-12-31 07:16] LABS: Anisocytosis 1+; Tear Drop Cells 1+
[2020-12-31 07:22] LABS: Cholesterol 136 mg/dL (140-199); HDL Cholesterol 27 mg/dL (40-60); LDL Cholesterol Calculated 90 mg/dL (<100); Triglycerides 93 mg/dL (35-150)
[2020-12-31] MEDS: INSULIN LISPRO 100 UNIT/ML 3ML VIAL SUBCUT ×4 (08:18→21:00)
[2020-12-31] MEDS: DEXAMETHASONE 10 MG/ML VIAL 6 MG IV (08:20)
[2020-12-31] MEDS: REMDESIVIR 100 MG in SODIUM CHLORIDE 0.9% 230 ML 250 ML IV (08:21)
[2020-12-31] MEDS: ENOXAPARIN 40 MG/0.4 ML SYRINGE SUBCUT ×2 (08:22→21:02)
[2020-12-31] MEDS: DOCUSATE 100 MG CAPSULE PO ×2 (08:22→21:02)
[2020-12-31] MEDS: BARICITINIB 2 MG TABLET 4 MG PO (08:22)
--- NOTE | 2020-12-31 10:43 | CM.DANOTE ---
DCP: Case received, EMR reviewed and met with patient. Introduced self and role. Was able to call patient and obtain some information regarding his health, and current situation. DCP completed with information currently available. Patient is a 50 year old male who admitted yesterday morning to the care of the hospitalist team. PCP: None Payer: No current insurance, he is under COVID fuding. Patient came to the hospital via private vehicle secondary to having increased shortness of breath. Patient had recently been here for [place], and sent home in isolation. He developed increased shortness of breath. He is here on oxygen and COVID Pneumonia. Patient has no current medical insurance, he is here under the special [place] funding. 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 He also has a new diagnosis of diabetes. Called patient in his room. He is independent at his baseline, and is employed at [employer], which is a recent job. His is also employed, so he does not qualify for state insurance. He is supposed to get insured by March. He resides in [place] with his spouse, June. He is concerned about his new diagnosis of diabetes. He also has no provider. Let him know that this case manage can provide resources, he is interested in seeing someone in [place]. Can get him resources for [place]. He is also aware that he may have to pay out of pocket for some of his diabetic supplies. He will get further teaching here in the hospital, may als need to have dietary consult. P: DCP to continue to follow. Patient should be able to go home when deemed medically stable, but will need diabetic education, and DCP to give resources for current providers here in the area. Sherin Moura RN/Data Consultant Discharge Planning/Care Management CM Discharge Assessment Start: 12/31/20 10:40 Freq: Status: Active Protocol: Document 12/31/20 10:41 (Rec: 12/31/20 10:42 [id number]) Discharge Planning Assessment Assigned Named Account Executive Sherin Moura RN/Data Consultant Advance Directives? No History Provided By Patient,Medical Record Prior Living Arrangements House Household Members spouse,children Type of transporation used prior to Drives own vehicle admit Independent with ADL's Yes Is patient alert and oriented? Yes Caregiver for Another No Barriers to Discharge Yes Comment No provider as of yet, no insurance, newly diagnosed diabetes Discharge Plan Home Transportation Arrangement Family Referrals Initiated Other Additional Comment Will provide resources for new providers in the area. Would encourage him to set up appointment early. Whiteboard Updated in Patient Room with No name and ext. # of Named Account Executive Comment Patient is COVID positive, did not enter room. Review Status In Process Next Review Type Continued Stay Review
--- NOTE | 2020-12-31 12:48 | PC.NURSE ---
Per ..She put patient on RA and his sats are 94%. She would like him to ambulate around in the room so that we can see what his room air sat is with increased activity. Patients breath sounds are CTA, he is moving around in his room independently and denies discomfort or issues with breathing. Patient received his decadron and remdesvir this morning. His bloods sugars today have been 317 and 311. He has gotten 10u of insulin x2. Resting and eating lunch now.
--- NOTE | 2020-12-31 14:39 | P.PN_ITS ---
Subjective Subjective Date Patient Seen: 12/31/20 Interval history: 50 y/o male admitted to the hospital with Covid pneumonia. He feels better today. He is a new diabetic and blood sugars have been increasing on steroids. He continues to have a cough. He desaturates to 88% with activity. Oxygenation good at rest on room air. Exam Vital Signs (past 8 hours): - 12/31/20 07:40 12/31/20 08:05 12/31/20 14:23 Temperature 97.3 F L 96.7 F L Pulse Rate 66 71 Respiratory Rate 18 18 Blood Pressure 112/68 128/67 Pulse Oximetry 96 95 93 Oxygen Delivery Method Nasal Cannula Oxygen Flow Rate 0 Narrative Exam Narrative: Pleasant male in no acute distress Resp Other: Lungs: decreased breath sounds but clear to auscultation Cardio Other: RRR nl Sl S2 GI Other: Abd: soft/ non tender/ non distended Extrem Other: no edema Objective Labs Result Diagrams: 12/31/20 05:37 12/31/20 05:37 Labs: Laboratory Results - last 24 hr 12/30/20 12/31/20 12/31/20 08:35 05:37 05:37 WBC 6.2 RBC 5.89 Hgb 10.8 L Hct 35.3 L MCV 59.9 L MCH 18.4 L MCHC 30.7 RDW 15.6 H Plt Count 217 Neut % (Auto) 62.2 Lymph % (Auto) 24.6 L [place] % (Auto) 8.6 Eos % (Auto) 0.5 L Baso % (Auto) 4.1 H Neut # (Auto) 3800 Lymph # (Auto) 1500 [place] # (Auto) 500 Eos # (Auto) 0 Baso # (Auto) 300 H RBC Morphology Not Reportable Anisocytosis 1+ H Tear Drop Cells 1+ H Sodium 137 Potassium 3.8 Chloride 99 Carbon Dioxide 32 BUN 13 Creatinine 0.46 L Estimated GFR > 60.0 BUN/Creatinine Ratio 28.3 H Glucose 292 H Hemoglobin A1c 12.4 H Calcium 9.0 Triglycerides Cholesterol LDL Cholesterol, Calc HDL Cholesterol 12/31/20 05:37 WBC RBC Hgb Hct MCV MCH MCHC RDW Plt Count Neut % (Auto) Lymph % (Auto) [place] % (Auto) Eos % (Auto) Baso % (Auto) Neut # (Auto) Lymph # (Auto) [place] # (Auto) Eos # (Auto) Baso # (Auto) RBC Morphology Anisocytosis Tear Drop Cells Sodium Potassium Chloride Carbon Dioxide BUN Creatinine Estimated GFR BUN/Creatinine Ratio Glucose Hemoglobin A1c Calcium Triglycerides 93 Cholesterol 136 L LDL Cholesterol, Calc 90 HDL Cholesterol 27 L PFSH Family History (Updated 12/30/20 @ 13:48 by Nicolette Martin MD) Mother Brain malignancy Other Cancer Social History household members: spouse and children Smoking Status: Never smoker Assessment & Plan Assessment & Plan narrative: 1. 50 y/o male admitted to the hospital with REspiratory Failure secondary to Covid-19 pneumonia, unvaccinated -Patient has improved oxygenation -off oxygen and saturating well -still desaturates with activity -continue remdesivir/decadron/baricitnib for now -possible discharge home tomorrow 2. Type 2 diabetes -Hgb A1C 12.4 -continue bid insulin -diabetic education 3. Morbid Obesity -dietary consultation Time Spent With Patient Critical Care time: I spent a total of [] minutes of critical care time on this patient's care today; this time is exclusive of procedural time.
[2020-12-31] MEDS: INSULIN GLARGINE 100 UNIT/ML 3ML PEN 40 UNIT SUBCUT (21:01)
[2020-12-31] MEDS: SENNOSIDES 8.6 MG TABLET 17.2 MG PO (21:02)
[2020-12-31 23:20] LABS: Adenovirus Not Detected (Not Detect); B. parapertussis Not Detected (Not Detecte); Bordetella pertussis Not Detected (Not Detecte); Chlamydophila pneumoniae Not Detected (Not Detect); Coronavirus 229E Not Detected (Not Detect); Coronavirus HKU1 Not Detected (Not Detect); Coronavirus NL 63 Not Detected (Not Detect); Coronavirus OC43 Not Detected (Not Detect); Human Metapneumovirus Not Detected (Not Detect); Human Rhinovirus/Enterovirus Not Detected (Not Detect); Influenza A Not Detected (Not Detect); Influenza B Not Detected (Not Detect); Mycoplasma pneumoniae Not Detected (Not Detect); Parainfluenza Virus 1 Not Detected (Not Detect); Parainfluenza Virus 2 Not Detected (Not Detect); Parainfluenza Virus 3 Not Detected (Not Detect); Parainfluenza Virus 4 Not Detected (Not Detect); Respiratory Syncytial Virus Not Detected (Not Detect); SARS- CoV-2 Not Detected (Not Detecte)
[2021-01-01] VITALS: BP 123/71; PULSE 70; RESP 18; TEMP 36; O2SAT 94
[2021-01-01 02:44] LABS: COVID19 - ADMIT (NP swab/PCR) POSITIVE (Negative)
[2021-01-01 02:59] VITALS: O2SAT 93
[2021-01-01 05:35] VITALS: BP 139/77; PULSE 75; RESP 20; TEMP 36.4; O2SAT 95
[2021-01-01 07:30] VITALS: O2SAT 93
[2021-01-01] MEDS: REMDESIVIR 100 MG in SODIUM CHLORIDE 0.9% 230 ML 250 ML IV (08:42)
[2021-01-01] MEDS: BARICITINIB 2 MG TABLET 4 MG PO (08:43)
[2021-01-01] MEDS: DOCUSATE 100 MG CAPSULE PO (08:44)
[2021-01-01] MEDS: ENOXAPARIN 40 MG/0.4 ML SYRINGE SUBCUT (08:44)
[2021-01-01] MEDS: DEXAMETHASONE 10 MG/ML VIAL 6 MG IV (08:45)
[2021-01-01] MEDS: INSULIN LISPRO 100 UNIT/ML 3ML VIAL SUBCUT ×2 (08:46→12:20)
[2021-01-01 09:00] VITALS: BP 143/76; PULSE 74; RESP 16; TEMP 36.2; O2SAT 94
[2021-01-01 12:04] VITALS: BP 123/64; PULSE 72; RESP 16; TEMP 36.3; O2SAT 93
--- NOTE | 2021-01-01 12:53 | PC.NURSE ---
Discharge instructions: Patient remain off O2, maintaining O2 sats >95% on RA. Excellent appetite. Took a shower, states significant improvement in breathing effort, strength, and overall feeling better. Patient discharged home per MD order, discharge instructions given patient. Diabetes education provided, discussed importance of new medication compliance and adherence. Demonstrated Insulin pen use and teaching provided, patient demonstrated use & teach back. Educated regarding new diabetes diagnosis, terminologist diabetes complications, importance of dietary and lifestyle modifications. Educated regarding s/sx of hypoglycemia. All questions answered. Patient to pickup driver RX on way home, will physically pick Rx. Discussed importance of establishing care with a PCP as soon as possible and follow up. Educated regarding COVID precautions, importance of self/safe care at home and Vaccine administration when safe to do so. Patient verbalized understanding of discharge instructions. Home via private vehicle accompanied by spouse.
--- NOTE | 2021-01-01 13:40 | CM.DPC ---
DCP Cont: Per MD, pt medically stable to d/c home today and no identified barriers to discharge. Per RN, d/c instructions provided and diabetic teaching given and Rx to be picked up at pharmacy on way home via spouse POV and pt aware of need to establish with PCP for follow up and he has plans to call a few clinics tomorrow Mon when open. Plan: Patient to d/c home today via spouse POV and has numbers to PCP clinics to follow up with this week. No further SW needs at this time. JACE Momin
--- NOTE | 2021-01-01 16:09 | P.DS_ITS ---
History of Present Illness History of Present Illness Chief complaint: covid+, O2 level 84 Narrative: The patient is a 50-year-old male with no prior past medical history who developed symptoms of COVID pneumonia 2 weeks prior to admission.? Patient reports he is unvaccinated.? He developed cough, shortness of breath, fever, sweats, and diarrhea.? As his symptoms were progressing he presented to the emergency department on December 27.? He was evaluated in the emergency department and found to be COVID positive.? He was hypoxic at the time although O2 sats were 90%.? He was evaluated treated and discharged home.? The patient was referred for monoclonal antibodies.? However as he was not more hypoxic it was felt he was not eligible.? Patient had a pulse oximeter at home.? He reported his O2 sat dropped to 83%.? He was markedly short of breath and presented to the hospital for evaluation.? In the emergency room chest x-ray did confirm bilateral opacities consistent with COVID pneumonia.? He is admitted to the hospital at this time for acute respiratory failure secondary to COVID pneumonia.? The patient has had no nausea or vomiting.? He has had significant coughing to the point of dry heaves.? He has not had no dysuria hematuria or pyuria.? He has lost 12 lb over the past 2 weeks.? He reports some mild headache, generalized myalgias,. Discharge Providers Provider Date of admission: 12/30/20 10:17 Discharge Date: 01/01/21 Consults: 12/30/20 12:16 Consult to Dietitian, Adult Routine Comment: Reason For Exam: obesity 12/31/20 14:45 Consult to Dietitian, Adult Routine Comment: Reason For Exam: diabetic education Discharge provider: Jere Cotton MD Summary Hospital Course Discharge Diagnosis: 1. COVID-19 pneumonia 2. Acute hypoxic respiratory failure 3. Type 2 diabetes, uncontrolled, new diagnosis 3. Severe obesity Patient was admitted due to respiratory failure from COVID-19 pneumonia. He was treated with remdesivir, dexamethasone and baracitinib. He recovered fairly quickly over next couple of days. He has normal O2 saturations at rest at time of discharge. Patient also has new diagnosis of diabetes with blood sugar over 400 on admission and hemoglobin A1c of 12.4. He is provided dietary counseling and education on insulin administration. He is encouraged to reduce calorie intake and get regular exercise to lose weight. He is being discharged on bedtime Lantus as well as metformin. He does not have PCP and encouraged to establish with johnathan. On exam he is alert, cooperative and in no acute distress. Breathing is nonlabored. Status at Discharge Cognitive/behavioral status at discharge: oriented Functional status at discharge: independent ambulation Overall status at discharge: patient is progressing back to baseline Exam Vital Signs (past 8 hours): - 01/01/21 09:00 01/01/21 12:04 Temperature 97.2 F L 97.4 F L Pulse Rate 74 72 Respiratory Rate 16 16 Blood Pressure 143/76 H 123/64 Pulse Oximetry 94 93 Oxygen Delivery Method Room Air Oxygen Flow Rate 0 Objective Labs Result Diagrams: 12/31/20 05:37 12/31/20 05:37 Labs: Laboratory Results - last 24 hr 12/31/20 01/01/21 21:28 01:20 Chlamy pneumoniae PCR Not detected Adenovirus (PCR) Not detected B. pertussis DNA (PCR) Not detected B.parapertussis DNA PCR Not detected Coronavirus OC43 (PCR) Not detected Coronavirus HKU1 (PCR) Not detected Coronavirus 229E (PCR) Not detected SARS-CoV-2 (PCR) Not detected Positive H Coronavirus NL63 (PCR) Not detected Human Metapneumovir PCR Not detected Influenza Type A (PCR) Not detected Influenza Type B (PCR) Not detected M. pneumoniae (PCR) Not detected Parainfluenza 1 (PCR) Not detected Parainfluenza 2 (PCR) Not detected Parainfluenza 3 (PCR) Not detected Parainfluenza 4 (PCR) Not detected RSV (PCR) Not detected Entero/Rhino (PCR) Not detected PFSH Family History (Updated 12/30/20 @ 13:48 by Nicolette Martin MD) Mother Brain malignancy Other Cancer Social History household members: spouse and children Smoking Status: Never smoker Discharge Plan Discharge Plan Patient Disposition: Home Provider Discharge Comment: You were treated for COVID pneumonia. You should s till get vaccinated once you have fully recovered from your illness. You have also been diagnosed with Type 2 diabetes, uncontrolled. I am discharging you on bedtime insulin and metformin twice daily. You should work on losing weight and getting regular exercise to help with diabetes management. Check blood sugars 2 to 3 times daily, fasting AM and 2 hours after main meal and/or at bedtime. You can cotton picker a monitor and test strips over the counter. Insurance may cover supplies as well. Please establish with PCP as soon as possible. Discharge orders & Medications Prescriptions: New (DME) pen needle, diabetic [BD Ultra-Fine Ivana Pen Needle] 32 gauge x 5/32 needle See Dose Instructions .ROUTE .MEDSUPPLY Qty: 30 RF: 0 (DME) lancets [BD Ultra Fine Lancets] 33 gauge misc See Dose Instructions .ROUTE .MEDSUPPLY Qty: 100 RF: 0 Semglee Pen U-100 Insulin 100 unit/mL (3 mL) insulin pen 30 unit SUBCUT BEDTIME Qty: 15 RF: 0 metformin 500 mg tablet 500 mg PO BID Qty: 60 RF: 0 Discontinued ondansetron HCl [Zofran] 4 mg tablet 4 mg PO Q6H PRN (Reason: nausea and vomiting) Qty: 10 RF: 0 codeine-guaifenesin 10-200 mg/5 mL liquid 5 ml PO Q6H PRN (Reason: cough) Qty: 100 RF: 0 azithromycin 250 mg tablet 250 mg PO DAILY RF: 0 Diet/Activity/Treatments Diet: Carb-consistent/Diabetic Diet comment: Heart healthy, low fat, high fiber, avoid starches, sweets. Visit Report/Discharge Packet Instructions: DI for Diabetes Type 2, DI for COVID-19 (Suspected or Confirmed )
== END 2021-01-01 13:29 | disposition home or self-care (01) | DRG 177 ==
LOC: ED 10:16 → AC 10:18
PROVIDERS: Family Medicine; Admitting Provider Internal Medicine; Emergency Provider Emergency Medicine; Referring Provider Emergency Medicine; Visit Provider Internal Medicine
DX: U07.1 COVID-19 (principal); J12.82 Pneumonia due to coronavirus disease 2019; J96.01 Acute respiratory failure with hypoxia; Z68.42 Body mass index [BMI] 45.0-49.9, adult; E66.01 Morbid (severe) obesity due to excess calories; E11.65 Type 2 diabetes mellitus with hyperglycemia; T38.0X5A Adverse effect of glucocorticoids and synthetic analogues, initial encounter
CPT/HCPCS: 36415; 71045; 80048; 80053; 80061; 82550; 82962; 83036; 83605; 84145; 84484; 85007; 85025; 85379; 86140; 87040; 87633; 87635; 93005; 94762; 96365; 96375; 99285; C9803; J1100; J1650; J1815